=== PATIENT | male | born 1985 | race Caucasian/White ===

== ENCOUNTER 2018-05-21 10:53 | Emergency (ER) | payer OTHER, MEDICAID ==
[2018-05-21] MEDS: NS 1,000 ML IV (11:28)
[2018-05-21] MEDS ORDERED: KETOROLAC 30 MG/ML VIAL (J1885) IV (11:30)
[2018-05-21 11:38] LABS: BASO # 0.1 10^3/uL (0.0-0.2); BASO % 0.4 % (0.0-1.0); EOS % 0.3 % (0.0-3.0); IMMATURE GRANULOCYTE % 0.4 % (0-3.0); LYMPH # 1.3 10^3/uL (1.5-4.5); LYMPH % 10.3 % (24.0-44.0); MEAN CORPUSCULAR HEMOGLOBIN 29.4 pg (27.0-33.0); MEAN CORPUSCULAR HGB CONC 34.8 g/dl (32.0-36.5); MEAN CORPUSCULAR VOLUME 84.6 fl (80.0-96.0); MONO # 0.6 10^3/uL (0.0-0.8); MONO % 5.1 % (0.0-5.0); NEUTROPHILS # 10.3 10^3/uL (1.8-7.7); NEUTROPHILS % 83.5 % (36.0-66.0); PLATELET COUNT, AUTOMATED 354 10^3/uL (150-450); RED BLOOD COUNT 5.44 10^6/uL (4.30-6.10); RED CELL DISTRIBUTION WIDTH 11.4 % (11.5-14.5); WHITE BLOOD COUNT 12.3 10^3/uL (4.0-10.0)
[2018-05-21 12:22] LABS: ANION GAP 12 MEQ/L (8-16); BLOOD UREA NITROGEN 11 MG/DL (7-18); CALCIUM LEVEL 9.7 MG/DL (8.5-10.1); CARBON DIOXIDE LEVEL 21 MEQ/L (21-32); CHLORIDE LEVEL 107 MEQ/L (98-107); CREATININE FOR GFR 1.05 MG/DL (0.70-1.30); GLOMERULAR FILTRATION RATE > 60.0 (>60); GLUCOSE, FASTING 105 MG/DL (70-100); MAGNESIUM LEVEL 2.3 MG/DL (1.8-2.4); SODIUM LEVEL 140 MEQ/L (136-145)
== END 2018-05-21 13:17 | disposition home or self-care (01) ==
LOC: M ED 10:53
DX: R55 Syncope and collapse (principal); K08.409 Partial loss of teeth, unspecified cause, unspecified class; Z87.09 Personal history of other diseases of the respiratory system
CPT/HCPCS: 93005

== ENCOUNTER 2018-07-26 19:13 | Emergency (ER) | payer OTHER ==
[~2018-07-26] VITALS: Ht 175.3 cm; Wt 86.4 kg
[2018-07-26] MEDS ORDERED: ALBUTEROL SULFATE 2.5 MG/0.5 ML INH NEB SOLN NEB ONE (20:15)
[2018-07-26] MEDS ORDERED: VENTAER INH (21:09)
[2018-07-26] MEDS ORDERED: AZIT-12 PO (21:09)
[2018-07-26] MEDS ORDERED: AZITHROMYCIN 250 MG TAB PO ONE (21:15)
[2018-07-26] MEDS ORDERED: ALBUTEROL 90 MCG/ACT 8GM HFA INHALER INH ONE (21:30)
[2018-07-26 21:35] VITALS: BP 130/78
--- NOTE | 2018-07-27 01:40 | REP ---
Clinical: Shortness of breath . Comparison: 07/18/2006 . Technique: PA and lateral. Findings: The mediastinum and cardiac silhouette are normal. The lung mullen are clear and without acute consolidation, effusion, or pneumothorax. The skeletal structures are intact and normal. Impression: 1. No acute cardiopulmonary process. Electronically Signed by Sina Witt MD 07/27/2018 01:32 A
--- NOTE | 2018-07-27 14:43 | ECGEPIP ---
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
== END 2018-07-26 21:36 | disposition home or self-care (01) ==
LOC: M ED 19:13
DX: J18.1 Lobar pneumonia, unspecified organism (principal)

== ENCOUNTER 2018-07-29 21:21 | Emergency (ER) | payer OTHER ==
[~2018-07-29] VITALS: Ht 175.3 cm; Wt 86.4 kg
[~2018-07-29 21:21] MED LIST: AZIT-12 PO; VENTAER INH
[2018-07-29] MEDS ORDERED: ISOVUE-370 76% 100ML VIAL (Q9967) As Ordered ONE (22:50)
[2018-07-29 22:54] LABS: BASO # 0.1 10^3/uL (0.0-0.2); BASO % 0.5 % (0.0-1.0); EOS # 0.1 10^3/uL (0.0-0.50); EOS % 0.8 % (0.0-3.0); HEMATOCRIT 45.3 % (42.0-52.0); HEMOGLOBIN 15.3 g/dl (13.5-17.5); LYMPH # 2.4 10^3/uL (1.5-4.5); LYMPH % 18.3 % (24.0-44.0); MEAN CORPUSCULAR HGB CONC 33.8 g/dl (32.0-36.5); MONO # 0.5 10^3/uL (0.0-0.8); NEUTROPHILS # 10.1 10^3/uL (1.8-7.7); NEUTROPHILS % 75.9 % (36.0-66.0); PLATELET COUNT, AUTOMATED 383 10^3/uL (150-450); RED BLOOD COUNT 5.27 10^6/uL (4.30-6.10); WHITE BLOOD COUNT 13.3 10^3/uL (4.0-10.0)
--- NOTE | 2018-07-30 00:08 | REPVR ---
EXAM: CT Angiography Chest With Contrast EXAM DATE/TIME: 07/29/2018 11:00 PM CLINICAL HISTORY: 32 years old, male; Pain; Chest pain; Type not specified; Additional info: Hemoptysis; SOB TECHNIQUE: Axial computed tomographic angiography images of the chest with intravenous contrast using CT angiography protocol. All CT scans at this facility use at least one of these dose optimization techniques: automated exposure control; mA and/or kV adjustment per patient size (includes targeted exams where dose is matched to clinical indication); or iterative reconstruction. Coronal and sagittal reformatted images were created and reviewed. MIP reconstructed images were created and reviewed. CONTRAST: 75 ml of iso administered intravenously. COMPARISON: CR Chest, 2 view PA, Lat 07/26/2018 8:18 PM FINDINGS: Limitations: Examination is limited by motion artifact. Pulmonary arteries: Normal. No pulmonary emboli. Aorta: Normal. No aortic aneurysm. No aortic dissection. Lungs: No consolidation. No masses. 4 mm lung nodule in the posterobasal right lower lobe. Series 401 image 129. Pleural space: Normal. No pneumothorax. No pleural effusion. Heart: Normal. No cardiomegaly. No pericardial effusion. Lymph nodes: Unremarkable. No enlarged lymph nodes. Bones/joints: Unremarkable. No acute fracture. Soft tissues: Unremarkable. IMPRESSION: Negative for pulmonary embolism. Small right lower lobe lung nodule. If patient does not have known cancer, follow up should be based on clinical information because of the low risk of cancer in this age group. (maribeth Mendez al., Fleischner Society, 2017) Electronically signed by: Jackelyn Ryan On 07/30/2018 00:08:35 AM
[2018-07-30 00:28] VITALS: BP 128/68
--- NOTE | 2018-07-31 08:08 | ED PDOC ---
Post-Departure Follow-Up [facility] faxed formal report of cta chest for fu Aileen Kee MD Jul 31, 2018 08:08
== END 2018-07-30 00:30 | disposition home or self-care (01) ==
LOC: M ED 21:21
DX: J06.9 Acute upper respiratory infection, unspecified (principal)
CPT/HCPCS: 71275; 85025; 99284; Q9967

== ENCOUNTER 2020-08-16 20:28 | Emergency (ER) | payer OTHER ==
[~2020-08-16] VITALS: Ht 175.3 cm; Wt 95.2 kg
[2020-08-16 20:30] VITALS: BP 139/79
--- OUTSIDE RECORDS SUMMARY | 2020-08-16 20:36 | CCD ---
Author Author [facility] Organization [facility] Address Unknown Phone Unavailable Support Name Relationship Address Phone [employer]VERG[employer] Next Of Kin [address] [place] [address] [place] [address] VICTORIANO ELLIS Next Of Kin [address] [place] [address] [place] [address] SAMM ELLIS SR Next Of [facility] [address] [place] [address] JOSE ELLIS Next Of Kin [address] [place] [address] Re-disclosure Warning The records that you are about to access may contain information from federally-assisted alcohol or drug abuse programs. If such information is present, then the following federally mandated warning applies: This information has been disclosed to you from records protected by federal confidentiality rules (42 CFR part 2). The federal rules prohibit you from making any further disclosure of this information unless further disclosure is expressly permitted by the written consent of the person to whom it pertains or as otherwise permitted by 42 CFR part 2. A general authorization for the release of medical or other information is NOT sufficient for this purpose. The Federal rules restrict any use of the information to criminally investigate or prosecute any alcohol or drug abuse patient.The records that you are about to access may contain highly sensitive health information, the redisclosure of which is protected by Article 27-F of the [facility] Public Health law. If you continue you may have access to information: Regarding HIV / AIDS; Provided by facilities licensed or operated by the [facility] Office of Mental Health; or Provided by the [facility] Office for People With Developmental Disabilities. If such information is present, then the following [facility] mandated warning applies: This information has been disclosed to you from confidential records which are protected by state law. State law prohibits you from making any further disclosure of this information without the specific written consent of the person to whom it pertains, or as otherwise permitted by law. Any unauthorized further disclosure in violation of state law may result in a fine or mcc sentence or both. A general authorization for the release of medical or other information is NOT sufficient authorization for further disc losure. Family History Family Member Name Family Member Gender Family Member Status Date o f Status Description Data Source(s) Unknown Female Problem [facility] ([facility]) Insurance Providers Payer name Policy type / Coverage type Policy ID Covered libertarian ID Covered libertarian's relationship to kim Policy Kim Plan Information [employer] [place] [id number] SP [id number] [employer] [place] [place] [id number] SP [id number] MEDICAID [id number] SP [id number] Aetna Commercial Self
[2020-08-16] MEDS ORDERED: ACETAMINOPHEN 500 MG TAB PO ONE (20:45)
--- NOTE | 2020-08-16 21:34 | REPVR ---
PROCEDURE INFORMATION: Exam: XR Chest, 1 View Exam date and time: 08/16/2020 9:16 PM Age: 34 years old Clinical indication: Other: SOB TECHNIQUE: Imaging protocol: XR of the chest Views: 1 view. COMPARISON: CR Chest, 2 view PA, Lat 07/26/2018 8:18 PM FINDINGS: Lungs: Unremarkable. No consolidation. Pleural spaces: Unremarkable. No pleural effusion. No pneumothorax. Heart/Mediastinum: Unremarkable. No cardiomegaly. Bones/joints: Unremarkable. IMPRESSION: Negative chest without significant change from 07/26/2018. Electronically signed by: Zain Alaniz On 08/16/2020 21:34:04 PM
--- OUTSIDE RECORDS SUMMARY | 2020-08-16 22:15 | CCD ---
Author Author [facility] Organization [facility] Address Unknown Phone Unavailable Support Name Relationship Address Phone CONVERGYS Next Of Kin [address] [place] [address] [place] [address] VICTORIANO ELLIS Next Of Kin [address] [facility] [address] [address] [place] [address] SAMM ELLIS SR Next Of Kin [address] [place] [address] JOSE ELLIS Next Of Kin [address] [address] Re-disclosure Warning The records that you are [...] is protected by Article 27-F of the [facility] Public Health law. If you continue you may have access to information: Regarding HIV / AIDS; Provided by facilities licensed or operated by the [facility] Office of Mental Health; or Provided by the [facility] Office for People With Developmental Disabilities. If such information is present, then the following [facility] mandated warning applies: This information has been [...] law may result in a fine or [place] [facility] sentence or both. A general authorization for the release of medical or other information is NOT sufficient authorization for further disc losure. Family History Family Member Name Family Member Gender Family Member Status Date o f Status Description Data Source(s) Unknown Female Problem [facility] ([facility]) Insurance Providers Payer name Policy type / Coverage type Policy ID Covered alliance party ID Covered alliance party's relationship to kim Policy Kim Plan Information [facility] [id number] SP [id number] [employer] [place] [id number] SP [id number] [facility] [facility] [place] [id number] SP [id number] MEDICAID [id number] SP [id number] Aetna Commercial Self
== END 2020-08-16 22:57 | disposition home or self-care (01) ==
LOC: M ED 20:28
DX: U07.1 COVID-19 (principal)

== ENCOUNTER 2020-08-25 18:23 | Emergency (ER) | payer OTHER ==
[~2020-08-25] VITALS: Ht 177.8 cm; Wt 205.0 kg
--- OUTSIDE RECORDS SUMMARY | 2020-08-25 18:28 | CCD ---
Author Author [facility] Organization [facility] Address Unknown Phone Unavailable Support Name Relationship Address Phone [employer] Next Of Kin [address] [place] [address] CONVERGYS Next Of Kin [address] [place] [address] [place] [address] VICTORIANO ELLIS Next Of Kin [address] [address] [place] [address] SAMM ELLIS SR Next Of Kin [address] [place] [address] JOSE ELLIS Next Of Kin [address] [place] [address] Re-disclosure Warning The records that you are [...] is protected by Article 27-F of the [place] Public Health law. If you continue you may have access to information: Regarding HIV / AIDS; Provided by facilities licensed or operated by the [facility] Office of Mental Health; or Provided by the [facility] Office for People With Developmental Disabilities. If such information is present, then the following [facility] mandated warning applies: This information has been [...] law may result in a fine or retirement sentence or both. A general authorization for the release of medical or other information is NOT sufficient authorization for further disc losure. Family History Family Member Name Family Member Gender Family Member Status Date o f Status Description Data Source(s) Unknown Female Problem [facility] ([facility]) Encounters Encounter Providers Location Date Indications Data Source(s ) TeleMedicine Phone E/M by [facility] 11-[address] [place] [address] 08/18/2020 12:00:00 AM EST eCW1 ([facility]) Medications Medication Brand Name Start Date Product Form Dose Route Admi nistrative Instructions Pharmacy Instructions Status Indications Reaction Description Data Source(s) cetirizine hydrochloride 10 MG Oral Tablet Cetirizine HCl 10 MG Cetirizine HCl 10 MG 08/18/2020 12:00:00 AM EST 1.0 {tablet} activ e Cetirizine HCl 10 MG eCW1 ([facility]) Flonase Allergy Relief 50 MCG/ACT Flonase Allergy Relief 50 MCG/ACT 08/18/2020 12:00:00 AM EST active Flonase Allergy Relief 50 MCG/ACT eCW1 ([facility]) Insurance Providers Payer name Policy type / Coverage type Policy ID Covered alliance party ID Covered alliance party's relationship to kim Policy Kim Plan Information OTHER1 [facility] [id number] SP [id number] [facility] [id number] SP [id number] [facility] [id number] SP [id number] [facility] [id number] SP [id number] [employer] [facility] [place] [id number] SP [id number] [employer] [place] [id number] SP [id number] MEDICAID [id number] SP [id number] [employer] Commercial Self Problems, Conditions, and Diagnoses Code Display Name Description Problem Type Effective Dates Data Source(s) Z91.09 [id number] Environmental allergies Problem 08/18/2020 1 2:00:00 AM EST eCW1 ([facility]) Results ID Date Data Source [id number] 08/16/2020 09:16:00 PM EST [facility] Name Value Range Interpretation Code Description Data Dinah rce(s) Supporting Document(s) SARS COVID ANTIGEN POSITIVE [facility] This lab was ordered by JAMESON uherta nd reported by [facility]. Procedure Social History Code Duration Value Status Description Data Source(s ) Smoking 08/18/2020 12:00:00 AM EST Never Smoker completed Never S moker eCW1 ([facility]) Vital Signs ID Date Data Source UNK Name Value Range Interpretation Code Description Data Source(s) Body mass index (BMI) [Ratio] 29.99 kg/m2 29.99 kg/m2 W1 ([facility]) Body height 70 [in_i] 70 [in_i] eCW1 ([facility]) Body weight 209 [lb_av] 209 [lb_av] eCW1 ([facility]) Patient Treatment Plan of Care Planned Activity Planned Date Details Description Data Source (s) Flonase Allergy Relief 50 MCG/ACT 08/18/2020 12:00:00 AM EST eCW1 ([facility]) cetirizine hydrochloride 10 MG Oral Tablet 08/18/2020 12:00:[address] eCW1 ([facility])
--- OUTSIDE RECORDS SUMMARY | 2020-08-25 18:28 | CCD ---
Author Author [facility] Organization [facility] Address Unknown Phone Unavailable Care Team Providers Care Director Of Category Management Name Role Phone Sasha Galeana Unavailable PROBLEMS Type Condition ICD9-CM Code [id number] Code Onset Dates Condition S tatus W/U Status Risk SNOMED Code Notes Problem Environmental allergies Z91.09 Active confirmed [id number] ALLERGIES No Known Allergies ENCOUNTERS from 1985 to 2020-08-21 Encounter Location Date Provider Diagnosis [address] [address] Aug, Sasha Galeana COVID-19 U07.1 and Environmental allergi es Z91.09 IMMUNIZATIONS No Information SOCIAL HISTORY Tobacco Use: Social History Observation Description Date Details (start date - stop date) Never Smoker Sex Assigned At : Social History Observation Description Sex Assigned At Unknown Tobacco Use: Question Answer Notes Are you a: never smoker REASON FOR REFERRAL No Information VITAL SIGNS Weight 209 lbs Aug, Height 70 in Aug, BMI 29.99 kg/m2 Aug, MEDICATIONS Medication SIG (Take, Route, Frequency, Duration) Notes Start Da te End Date Status Cetirizine HCl 10 MG 1 tablet Orally Qhs for 30 day(s) Aug, Active Flonase Allergy Relief 50 MCG/ACT 2 sprays each nostri l Nasally Once a day for 10 days Aug, Active PROCEDURES No Information RESULTS No Results REASON FOR VISIT COVID F/U MEDICAL (GENERAL) HISTORY Type Description Date Medical History pneumothorax, age 16 Surgical History No Surgical history information Goals Section No Information Health Concerns No Information MEDICAL EQUIPMENT No Information MENTAL STATUS No Information FUNCTIONAL STATUS No Information ASSESSMENTS Encounter Date Diagnosis Assessment Notes Treatment Notes Treatm ent Clinical Notes Aug, COVID-19 (ICD-10 - U07.1) Patient is currently day#[2] since diagnosis, day#[2] since start of symptoms. SpO2 has remained [94 and above]. Patient was advised to continue to monitor twice daily. If [he] does note readings slipping into the 80's, patient was advised to present to the ED for further evaluation and management. Patient verbalized understanding with the plan. Will f/u with pt on Friday via virtual visit , Total time caring for the patient on the day of the encounter was 20 min Aug, Environmental allergies (ICD-10 - Z91.09) PLAN OF TREATMENT Medication Medication Name Sig Start Date Stop Date Cetirizine HCl 10 MG 1 tablet Orally Qhs for 30 day(s) Aug, Flonase Allergy Relief 50 MCG/ACT 2 sprays each nostri l Nasally Once a day for 10 days Aug, Treatment Notes Assessment Notes Clinical Notes COVID-19 Patient is currently day#[2] since diagnosis, day#[2] since start of symptoms. SpO2 has remained [94 and above]. Patient was advised to continue to monitor twice daily. If [he] does note readings slipping into the 80's, patient was advised to present to the ED for further evaluation and management. Patient verbalized understanding with the plan. Will f/u with pt on Friday via virtual visit, Total time caring for the patient on the day of the encounter was 20 min Next Appt Details 3 days Reason:COVID-19 Outpatient follow -up Provider Name:Sasha Galeana, 2020-08-23 04:00:00 PM, [address] [place], [address], Follow Up:3 daysCOVID-19 Outpatient follow-up Insurance Providers Payer Name Payer Address Payer Phone Insured Name Patient Relati onship to Insured Coverage Start Date Coverage End Date [facility] [address] [facility] [phone] SAMM ELLIS I self
[2020-08-25] MEDS ORDERED: ACETAMINOPHEN 325 MG TAB PO ONE (20:00)
[2020-08-25] MEDS ORDERED: IBUPROFEN 600MG TAB PO ONE (20:15)
--- OUTSIDE RECORDS SUMMARY | 2020-08-25 20:40 | CCD ---
Author Author [facility] Organization [facility] Address Unknown Phone Unavailable Support Name Relationship Address Phone [employer] Next Of Kin [address] [place] [address] CONVERGYS Next Of Kin [address] [place] [address] [place] [address] VICTORIANO ELLIS Next Of Kin [address] [address] [place] [address] [address]M ELLIS SR Next Of Kin [address] [place] [address] JOSE ELLIS Next Of Kin [address] [place] [address] Re-disclosure Warning The records that you are [...] is protected by Article 27-F of the [place] Public Health law. If you continue you may have access to information: Regarding HIV / AIDS; Provided by facilities licensed or operated by the [facility] Office of Mental Health; or Provided by the [facility] Office for People With Developmental Disabilities. If such information is present, then the following [facility] mandated warning applies: This information [...] law may result in a fine or long term sentence or both. A general authorization for the release of medical or other information is NOT sufficient authorization for further disc losure. Family History Family Member Name Family Member Gender Family Member Status Date o f Status Description Data Source(s) Unknown Female Problem [facility] ([facility]) Encounters Encounter Providers Location Date Indications Data Source(s ) TeleMedicine Phone E/M by [facility] 11-[address] [place] [address] 08/18/2020 12:00:00 AM EST [facility] Medications Medication Brand Name Start Date Product Form Dose Route Admi nistrative Instructions Pharmacy Instructions Status Indications Reaction Description Data Source(s) cetirizine hydrochloride 10 MG Oral Tablet Cetirizine HCl 10 MG Cetirizine HCl 10 MG 08/18/2020 12:00:00 AM EST 1.0 {tablet} activ e Cetirizine HCl 10 MG eCW1 ([facility]) Flonase Allergy Relief 50 MCG/ACT Flonase Allergy Relief 50 MCG/ACT 08/18/2020 12:00:00 AM EST active Flonase Allergy Relief 50 MCG/ACT eCW1 ([facility]) Insurance Providers Payer name Policy type / Coverage type Policy ID Covered green party ID Covered green party's relationship to kim Policy Kim Plan Information [facility] [id number] SP [id number] OTHER1 [facility] [id number] SP [id number] [facility] [id number] SP [id number] [facility] [id number] SP [id number] [employer] [place] [id number] SP [id number] [employer] [facility] [place] [id number] SP [id number] MEDICAID [id number] SP [id number] [employer] Commercial Self Problems, Conditions, and Diagnoses Code Display Name Description Problem Type Effective Dates Data Source(s) Z91.09 [id number] Environmental allergies Problem 08/18/2020 1 2:00:00 AM EST eCW1 ([facility]) Results ID Date Data Source [id number] 08/16/2020 09:16:00 PM EST [facility] Name Value Range Interpretation Code Description Data Dinah rce(s) Supporting Document(s) SARS COVID ANTIGEN POSITIVE [facility] This lab was ordered by JAMESON huerta nd reported by [facility]. Procedure Social History Code Duration Value Status Description Data Source(s ) Smoking 08/18/2020 12:00:00 AM EST Never Smoker completed Never S moker eCW1 ([facility]) Vital Signs ID Date Data Source UNK Name Value Range Interpretation Code Description Data Source(s) Body mass index (BMI) [Ratio] 29.99 kg/m2 29.99 kg/m2 W1 ([facility]) Body height 70 [in_i] 70 [in_i] [facility]CW[facility] Body weight 209 [lb_av] 209 [lb_av] eCW1 ([facility]) Patient Treatment Plan of Care Planned Activity Planned Date Details Description Data Source (s) Flonase Allergy Relief 50 MCG/ACT 08/18/2020 12:00:00 AM EST eCW1 ([facility]) cetirizine hydrochloride 10 MG Oral Tablet 08/18/2020 12:00:[address] eCW1 ([facility])
--- NOTE | 2020-08-25 20:45 | REPVR ---
PROCEDURE INFORMATION: Exam: XR Chest, 1 View Exam date and time: 08/25/2020 7:32 PM Age: 34 years old Clinical indication: Cough; Additional info: COVID + TECHNIQUE: Imaging protocol: XR of the chest Views: 1 view. COMPARISON: 1. CR PORTABLE CHEST X-RAY 08/16/2020 9:[address] ANGIO CHEST 07/29/2018 10:49:46 PM 3. CR Chest, 2 view PA, Lat 07/26/2018 8:18:44 PM FINDINGS: Lungs: There are peripheral linear opacities in both lungs, most prominent in the left lung base. Pleural spaces: Unremarkable. No pleural effusion. No pneumothorax. Heart/Mediastinum: Unremarkable. No cardiomegaly. Bones/joints: Unremarkable. IMPRESSION: Peripheral linear opacities in both lungs, most prominent in the left lung base, which may be in keeping with the patient's history of COVID-19 pneumonia. Electronically signed by: Raj Pugh On 08/25/2020 20:45:17 PM
[2020-08-25 21:45] VITALS: BP 123/72
== END 2020-08-25 21:58 | disposition home or self-care (01) ==
LOC: M ED 18:23
DX: U07.1 COVID-19 (principal); R50.9 Fever, unspecified

== ENCOUNTER → 2022-02-25 | Outpatient (CLI) | payer OTHER | LOC: M PLAIMG 13:35 | PROVIDERS: ATTEND Physician Assistant | DX: R91.1 Solitary pulmonary nodule (principal) ==

== ENCOUNTER → 2022-02-25 | Outpatient (CLI) | payer OTHER | LOC: M PLAIMG 13:58 | PROVIDERS: ATTEND Physician Assistant | DX: M54.50 Low back pain, unspecified (principal); G89.29 Other chronic pain ==